=== PATIENT | male | born 1955 | race Caucasian/White ===

== ENCOUNTER 2017-01-02 19:07 | Inpatient (IN) | payer MEDICARE, OTHER ==
[~2017-01-02] VITALS: Ht 193 cm; Wt 81.6 kg
[2017-01-02 20:04] LABS: BASOPHILS % (AUTO) 0.9 % (0.0-2.0); EOSINOPHILS # (AUTO) 0.1 /CMM (0.0-0.7); EOSINOPHILS % (AUTO) 1.7 % (0.0-6.0); HEMATOCRIT 40 % (39-51); HEMOGLOBIN 13.5 g/dL (13.5-17.5); LYMPHOCYTES # (AUTO) 1.5 /CMM (0.8-4.8); LYMPHOCYTES % (AUTO) 31.6 % (20.0-44.0); MEAN CORPUSCULAR HEMOGLOBIN 31 PG (26.0-33.0); MEAN CORPUSCULAR HGB CONC 34 g/dl (31.0-36.0); MEAN CORPUSCULAR VOLUME 92 fL (80-96); MONOCYTES # (AUTO) 0.4 /CMM (0.1-1.30); MONOCYTES % (AUTO) 8.6 % (2.0-12.0); NEUTROPHILS # (AUTO) 2.8 /CMM (1.8-8.9); NEUTROPHILS % (AUTO) 57.2 % (43.0-81.0); PLATELET COUNT (AUTO) 148 /CMM (150-450); RDW COEFFICIENT OF VARIATION 12.2 (11.5-15.0); RED BLOOD CELL COUNT(AUTO) 4.33 MIL/uL (4.5-6.0); WHITE BLOOD COUNT (AUTO) 4.8 K/uL (4.3-11.0)
[2017-01-02] MEDS ORDERED: ALPRAZOLAM 0.5 MG TABLET ONE (20:14)
[2017-01-02 20:21] LABS: ALANINE AMINOTRANSFERASE 20 U/L (12-78); ALBUMIN 3.9 g/dL (3.4-5.0); ALCOHOL, BLOOD < 3 mg/dL (0-0); ALKALINE PHOSPHATASE 58 U/L (46-116); ASPARTATE AMINOTRANSFERASE 38 U/L (15-37); BILIRUBIN,DIRECT 0.1 mg/dL (0.0-0.2); BILIRUBIN,TOTAL 0.7 mg/dL (0.2-1.0); CALCIUM, SERUM 8.6 mg/dL (8.5-10.1); CARBON DIOXIDE 32 mmol/L (21-32); CHLORIDE 107 mmol/L (98-107); CREATININE 1.1 mg/dL (0.6-1.3); GLUCOSE 87 mg/dL (74-106); POTASSIUM 4.7 mmol/L (3.5-5.1); SODIUM SERUM 142 mmol/L (136-145); TOTAL PROTEIN, SERUM 7.1 g/dL (6.4-8.2); UREA NITROGEN, BLOOD 15 mg/dL (7-18)
[2017-01-02 20:28] LABS: ACETAMINOPHEN 0 ug/ml (10-30); SALICYLATE 0.2 mg/dL (2.8-20.0)
[2017-01-02] MEDS ORDERED: ACETAMINOPHEN 325 MG TABLET PO PRN (22:00)
[2017-01-02] MEDS ORDERED: MAGNESIUM HYDROXIDE 30 ML UDC PO PRN (22:00)
[2017-01-02] MEDS ORDERED: MAG HYDROX/AL HYDROX/SIMETH 30 ML UDC PO PRN (22:00)
[2017-01-02] MEDS ORDERED: LORAZEPAM 0.5 MG TABLET ONE (22:37)
[2017-01-02] MEDS: LORAZEPAM 0.5 MG TABLET PO PRN (22:51)
[2017-01-02 23:00] VITALS: BP 106/70
[2017-01-02] MEDS ORDERED: SIMV20TA6 PO (23:08)
[2017-01-02] MEDS ORDERED: CARB15DR12 (23:08)
[2017-01-02] MEDS ORDERED: CEPH500C2 PO (23:08)
[2017-01-02] MEDS ORDERED: SIMV10TA6 PO (23:08)
[2017-01-02] MEDS ORDERED: MEMA28CA PO (23:08)
[2017-01-02] MEDS ORDERED: TRAZ-144 PO (23:08)
[2017-01-02] MEDS ORDERED: DONE10TA44 PO (23:08)
[2017-01-02] MEDS ORDERED: TRAZ-147 PO (23:08)
[2017-01-02] MEDS ORDERED: CITA20TA11 PO (23:08)
[2017-01-02] MEDS ORDERED: ALPR0.5T8 PO (23:08)
[2017-01-02] MEDS ORDERED: DIVA125T3 PO (23:08)
[2017-01-02] MEDS: DONEPEZIL 5 MG TABLET PO SCH (23:30)
[2017-01-03 04:58] VITALS: BP 103/66
[2017-01-03 08:16] VITALS: BP 133/73
[2017-01-03] MEDS ORDERED: CARBAMIDE PEROXIDE OTIC 15 ML BOTTLE EACH EAR SCH (09:00)
[2017-01-03] MEDS: MEMANTINE HCL 5 MG TABLET PO SCH (09:06)
[2017-01-03] MEDS: CEPHALEXIN MONOHYDRATE 500 MG CAPSULE PO SCH ×2 (09:19→16:03)
[2017-01-03] MEDS: DIVALPROEX SODIUM 125 MG TABLET.DR PO SCH ×3 (11:59→16:03)
[2017-01-03] MEDS: LORAZEPAM 0.5 MG TABLET PO PRN ×2 (15:58→21:57)
[2017-01-03 16:00] VITALS: BP 120/77
[2017-01-03] MEDS: QUETIAPINE FUMARATE 25 MG TABLET PO SCH ×2 (16:03→21:56)
[2017-01-03 20:18] LABS: APPEARANCE,URINE CLEAR (CLEAR); BILIRUBIN,URINE NEGATIVE (NEGATIVE); BLOOD, URINE NEGATIVE Ery/uL (NEGATIVE); COLOR,URINE YELLOW (YELLOW); KETONES,URINE TRACE (NEGATIVE); LEUKOCYTE ESTERASE ,URINE NEGATIVE (NEGATIVE); NITRITE, URINE NEGATIVE (NEGATIVE); PROTEIN,URINE NEGATIVE (NEGATIVE); UGLUCOSE NEGATIVE (NEGATIVE); UROBILINOGEN,URINE 0.2 EU/dL (0.2)
[2017-01-03 20:27] LABS: BACTERIA,URINE None seen /HPF (None Seen); RBC,URINE NONE SEEN /HPF (0-2); SQUAMOUS EPITHELIAL CELL,UR Few /HPF (None Seen); WBC,URINE 0-2 /HPF (0-3)
[2017-01-03 20:42] VITALS: BP 118/72
[2017-01-03] MEDS: DONEPEZIL 5 MG TABLET PO SCH (21:56)
[2017-01-03] MEDS ORDERED: SIMVASTATIN 10 MG TABLET PO SCH (22:00)
[2017-01-03] MEDS ORDERED: SIMVASTATIN 20 MG TABLET PO SCH (22:00)
[2017-01-03] MEDS ORDERED: TRAZODONE 50 MG TABLET PO SCH (22:00)
[2017-01-04 08:00] VITALS: BP 126/65
[2017-01-04] MEDS: CEPHALEXIN MONOHYDRATE 500 MG CAPSULE PO SCH ×2 (08:53→16:39)
[2017-01-04] MEDS: DIVALPROEX SODIUM 125 MG TABLET.DR PO SCH ×2 (08:53→22:54)
[2017-01-04] MEDS: QUETIAPINE FUMARATE 25 MG TABLET PO SCH ×3 (08:54→22:54)
[2017-01-04] MEDS: MEMANTINE HCL 5 MG TABLET PO SCH (08:54)
[2017-01-04 12:23] LABS: MAGNESIUM 1.9 mg/dL (1.8-2.4)
[2017-01-04 12:46] LABS: THYROID STIMULATING HORMONE 1.165 uIU/mL (0.358-3.74)
[2017-01-04 16:00] VITALS: BP 155/74
[2017-01-04 19:55] VITALS: BP 108/57
[2017-01-05 07:51] VITALS: BP 104/59
[2017-01-05] MEDS: QUETIAPINE FUMARATE 25 MG TABLET PO SCH ×3 (08:33→21:51)
[2017-01-05] MEDS: CEPHALEXIN MONOHYDRATE 500 MG CAPSULE PO SCH ×2 (08:33→17:08)
[2017-01-05] MEDS: CYANOCOBALAMIN 1,000 MCG/ML VIAL IM SCH (09:51)
[2017-01-05] MEDS: LORAZEPAM 0.5 MG TABLET PO PRN (15:59)
[2017-01-05 16:00] VITALS: BP 104/63
[2017-01-05] MEDS ORDERED: Z GUARD REMEDY 4 OZ OINT TP PRN (18:00)
[2017-01-05 20:00] VITALS: BP 105/65
[2017-01-05] MEDS: Z GUARD REMEDY 4 OZ OINT TP SCH (21:18)
[2017-01-05] MEDS: DIVALPROEX SODIUM 125 MG TABLET.DR PO SCH (21:51)
[2017-01-05] MEDS: ZOLPIDEM TARTRATE 5 MG TABLET PO PRN (23:14)
[2017-01-06 08:00] VITALS: BP 113/70
[2017-01-06] MEDS: CEPHALEXIN MONOHYDRATE 500 MG CAPSULE PO SCH ×2 (08:23→16:26)
[2017-01-06] MEDS: QUETIAPINE FUMARATE 25 MG TABLET PO SCH ×3 (08:24→21:41)
[2017-01-06] MEDS: Z GUARD REMEDY 4 OZ OINT TP SCH ×2 (08:58→21:57)
[2017-01-06] MEDS: CYANOCOBALAMIN 1,000 MCG/ML VIAL IM SCH (08:59)
[2017-01-06 15:52] LABS: ALBUMIN 3.9 g/dL (3.4-5.0); BILIRUBIN,TOTAL 1.2 mg/dL (0.2-1.0); CREATININE 0.9 mg/dL (0.6-1.3); POTASSIUM 4.5 mmol/L (3.5-5.1); TOTAL PROTEIN, SERUM 7.4 g/dL (6.4-8.2)
[2017-01-06 16:00] VITALS: BP 106/79
[2017-01-06 17:19] LABS: BASOPHILS % (AUTO) 0.4 % (0.0-2.0); EOSINOPHILS # (AUTO) 0.1 /CMM (0.0-0.7); EOSINOPHILS % (AUTO) 1.8 % (0.0-6.0); HEMATOCRIT 45 % (39-51); HEMOGLOBIN 14.8 g/dL (13.5-17.5); MEAN CORPUSCULAR HEMOGLOBIN 31 PG (26.0-33.0); MEAN CORPUSCULAR HGB CONC 33 g/dl (31.0-36.0); MEAN CORPUSCULAR VOLUME 93 fL (80-96); MONOCYTES # (AUTO) 0.5 /CMM (0.1-1.30); MONOCYTES % (AUTO) 8.8 % (2.0-12.0); NEUTROPHILS # (AUTO) 4.3 /CMM (1.8-8.9); PLATELET COUNT (AUTO) 168 /CMM (150-450); RDW COEFFICIENT OF VARIATION 12.8 (11.5-15.0); RED BLOOD CELL COUNT(AUTO) 4.81 MIL/uL (4.5-6.0); WHITE BLOOD COUNT (AUTO) 5.9 K/uL (4.3-11.0)
[2017-01-06 20:00] VITALS: BP 112/90
[2017-01-06] MEDS: ZOLPIDEM TARTRATE 5 MG TABLET PO PRN (21:48)
[2017-01-06] MEDS ORDERED: DIVALPROEX SODIUM 125 MG CAP.SPRINK PO SCH (22:00)
[2017-01-06] MEDS: LORAZEPAM 0.5 MG TABLET PO PRN (22:02)
[2017-01-07 08:20] VITALS: BP 94/55
[2017-01-07] MEDS: CEPHALEXIN MONOHYDRATE 500 MG CAPSULE PO SCH ×2 (08:49→16:31)
[2017-01-07] MEDS: CYANOCOBALAMIN 1,000 MCG/ML VIAL IM SCH (08:49)
[2017-01-07] MEDS: QUETIAPINE FUMARATE 25 MG TABLET PO SCH ×2 (08:49→21:10)
[2017-01-07] MEDS: LORAZEPAM 0.5 MG TABLET PO PRN ×2 (08:52→12:41)
[2017-01-07] MEDS: Z GUARD REMEDY 4 OZ OINT TP SCH ×2 (09:00→20:37)
[2017-01-07 15:59] VITALS: BP 105/60
[2017-01-07] MEDS ORDERED: QUETIAPINE FUMARATE 25 MG TABLET PO SCH (17:00)
[2017-01-07 20:01] VITALS: BP 119/67
[2017-01-07] MEDS: DIVALPROEX SODIUM 125 MG CAP.SPRINK PO SCH (21:10)
[2017-01-07] MEDS: ZOLPIDEM TARTRATE 5 MG TABLET PO PRN (22:03)
[2017-01-08] MEDS: LORAZEPAM 0.5 MG TABLET PO PRN ×2 (01:32→09:12)
[2017-01-08 08:00] VITALS: BP 102/60
[2017-01-08] MEDS: QUETIAPINE FUMARATE 25 MG TABLET PO SCH ×4 (09:11→21:15)
[2017-01-08] MEDS: Z GUARD REMEDY 4 OZ OINT TP SCH ×2 (09:12→21:37)
[2017-01-08] MEDS: DIVALPROEX SODIUM 125 MG CAP.SPRINK PO SCH ×3 (09:12→21:15)
[2017-01-08] MEDS: CYANOCOBALAMIN 1,000 MCG/ML VIAL IM SCH (09:12)
[2017-01-08 20:23] VITALS: BP 105/55
[2017-01-09 08:00] VITALS: BP 106/87
[2017-01-09] MEDS: CYANOCOBALAMIN 1,000 MCG/ML VIAL IM SCH (08:16)
[2017-01-09] MEDS: DIVALPROEX SODIUM 125 MG CAP.SPRINK PO SCH ×2 (08:16→11:59)
[2017-01-09] MEDS: QUETIAPINE FUMARATE 25 MG TABLET PO SCH ×5 (08:16→21:51)
[2017-01-09] MEDS: Z GUARD REMEDY 4 OZ OINT TP SCH ×2 (10:50→21:28)
[2017-01-09] MEDS ORDERED: DIVALPROEX SODIUM 125 MG CAP.SPRINK PO SCH (13:00)
[2017-01-09] MEDS ORDERED: DIVALPROEX SODIUM 250 MG TABLET.DR PO SCH ×2 (13:34→22:00)
[2017-01-09 16:28] VITALS: BP 100/60
[2017-01-09 16:29] VITALS: BP 138/70
[2017-01-09 20:00] VITALS: BP 93/66
[2017-01-09] MEDS: ZOLPIDEM TARTRATE 5 MG TABLET PO PRN (22:52)
[2017-01-10] MEDS: QUETIAPINE FUMARATE 25 MG TABLET PO SCH ×4 (07:57→22:06)
[2017-01-10] MEDS: DIVALPROEX SODIUM 125 MG CAP.SPRINK PO SCH ×2 (07:57→12:07)
[2017-01-10 08:28] VITALS: BP 109/55
[2017-01-10] MEDS: CYANOCOBALAMIN 1,000 MCG/ML VIAL IM SCH (08:53)
[2017-01-10] MEDS: Z GUARD REMEDY 4 OZ OINT TP SCH ×2 (09:49→22:04)
[2017-01-10 16:00] VITALS: BP 96/74
[2017-01-10 20:18] VITALS: BP 109/64
[2017-01-10] MEDS: DIVALPROEX SODIUM 250 MG TABLET.DR PO SCH (22:06)
[2017-01-11 08:00] VITALS: BP 116/64
[2017-01-11] MEDS: QUETIAPINE FUMARATE 25 MG TABLET PO SCH ×5 (09:10→22:00)
[2017-01-11] MEDS: DIVALPROEX SODIUM 125 MG CAP.SPRINK PO SCH ×2 (09:10→14:05)
[2017-01-11] MEDS: CYANOCOBALAMIN 1,000 MCG/ML VIAL IM SCH (09:10)
[2017-01-11] MEDS: Z GUARD REMEDY 4 OZ OINT TP SCH ×2 (09:12→21:00)
[2017-01-11] MEDS: LORAZEPAM 0.5 MG TABLET PO PRN (11:17)
[2017-01-11 16:00] VITALS: BP 114/65
[2017-01-11] MEDS: DIVALPROEX SODIUM 250 MG TABLET.DR PO SCH ×2 (21:53→22:00)
[2017-01-11 22:33] VITALS: BP 102/64
[2017-01-12 08:36] VITALS: BP 101/60
[2017-01-12] MEDS: QUETIAPINE FUMARATE 25 MG TABLET PO SCH ×6 (09:39→22:00)
[2017-01-12] MEDS: CYANOCOBALAMIN 1,000 MCG/ML VIAL IM SCH (09:39)
[2017-01-12] MEDS: Z GUARD REMEDY 4 OZ OINT TP SCH ×2 (09:43→21:02)
[2017-01-12 09:50] LABS: BASOPHILS % (AUTO) 0.3 % (0.0-2.0); EOSINOPHILS # (AUTO) 0.1 /CMM (0.0-0.7); EOSINOPHILS % (AUTO) 2.1 % (0.0-6.0); HEMATOCRIT 42 % (39-51); HEMOGLOBIN 14.3 g/dL (13.5-17.5); LYMPHOCYTES # (AUTO) 0.9 /CMM (0.8-4.8); LYMPHOCYTES % (AUTO) 19.7 % (20.0-44.0); MEAN CORPUSCULAR HEMOGLOBIN 31 PG (26.0-33.0); MEAN CORPUSCULAR HGB CONC 34 g/dl (31.0-36.0); MEAN CORPUSCULAR VOLUME 92 fL (80-96); MONOCYTES # (AUTO) 0.3 /CMM (0.1-1.30); MONOCYTES % (AUTO) 5.8 % (2.0-12.0); NEUTROPHILS # (AUTO) 3.2 /CMM (1.8-8.9); NEUTROPHILS % (AUTO) 72.1 % (43.0-81.0); PLATELET COUNT (AUTO) 152 /CMM (150-450); RDW COEFFICIENT OF VARIATION 13.2 (11.5-15.0); RED BLOOD CELL COUNT(AUTO) 4.58 MIL/uL (4.5-6.0); WHITE BLOOD COUNT (AUTO) 4.5 K/uL (4.3-11.0)
[2017-01-12 10:09] LABS: ALBUMIN 3.9 g/dL (3.4-5.0); CALCIUM, SERUM 8.8 mg/dL (8.5-10.1); CREATININE 0.9 mg/dL (0.6-1.3); POTASSIUM 4.2 mmol/L (3.5-5.1); TOTAL PROTEIN, SERUM 7.5 g/dL (6.4-8.2)
[2017-01-12] MEDS: LORAZEPAM 0.5 MG TABLET PO PRN (10:27)
[2017-01-12] MEDS: DIVALPROEX SODIUM 125 MG CAP.SPRINK PO SCH ×2 (10:28→13:00)
[2017-01-12 16:40] VITALS: BP 106/66
[2017-01-12 20:00] VITALS: BP 101/67
[2017-01-12] MEDS: DIVALPROEX SODIUM 250 MG TABLET.DR PO SCH (21:39)
[2017-01-12] MEDS: TEMAZEPAM 7.5 MG CAPSULE PO PRN ×2 (21:40→21:46)
[2017-01-13 08:00] VITALS: BP 111/74
[2017-01-13] MEDS: QUETIAPINE FUMARATE 25 MG TABLET PO SCH ×4 (08:37→21:29)
[2017-01-13] MEDS: DIVALPROEX SODIUM 125 MG CAP.SPRINK PO SCH ×2 (08:37→13:12)
[2017-01-13] MEDS: CYANOCOBALAMIN 1,000 MCG/ML VIAL IM SCH (08:37)
[2017-01-13] MEDS: Z GUARD REMEDY 4 OZ OINT TP SCH ×2 (08:38→21:28)
[2017-01-13 16:02] VITALS: BP 105/65
[2017-01-13 20:00] VITALS: BP 99/72
[2017-01-13] MEDS: DIVALPROEX SODIUM 250 MG TABLET.DR PO SCH (21:29)
[2017-01-14 08:32] VITALS: BP 121/74
[2017-01-14] MEDS: CYANOCOBALAMIN 1,000 MCG/ML VIAL IM SCH ×2 (09:00→10:23)
[2017-01-14] MEDS: Z GUARD REMEDY 4 OZ OINT TP SCH ×2 (10:23→21:34)
[2017-01-14] MEDS: QUETIAPINE FUMARATE 25 MG TABLET PO SCH ×4 (10:23→22:30)
[2017-01-14] MEDS: DIVALPROEX SODIUM 125 MG CAP.SPRINK PO SCH ×2 (10:23→12:19)
[2017-01-14 15:48] VITALS: BP 100/50
[2017-01-14 20:00] VITALS: BP 102/56
[2017-01-14 22:20] VITALS: BP 117/65
[2017-01-14] MEDS: DIVALPROEX SODIUM 250 MG TABLET.DR PO SCH (22:24)
[2017-01-15 08:00] VITALS: BP 130/60
[2017-01-15] MEDS: CYANOCOBALAMIN 1,000 MCG/ML VIAL IM SCH (09:00)
[2017-01-15] MEDS: QUETIAPINE FUMARATE 25 MG TABLET PO SCH ×3 (09:17→17:30)
[2017-01-15] MEDS: DIVALPROEX SODIUM 125 MG CAP.SPRINK PO SCH ×2 (09:17→13:17)
[2017-01-15] MEDS: Z GUARD REMEDY 4 OZ OINT TP SCH ×2 (11:24→22:06)
[2017-01-15 16:00] VITALS: BP 108/66
[2017-01-15 20:34] VITALS: BP 108/51
[2017-01-15] MEDS: QUETIAPINE FUMARATE 100 MG TABLET PO SCH (22:07)
[2017-01-15] MEDS: DIVALPROEX SODIUM 250 MG TABLET.DR PO SCH (22:07)
[2017-01-16 08:00] VITALS: BP 100/60
[2017-01-16] MEDS: DIVALPROEX SODIUM 125 MG CAP.SPRINK PO SCH ×2 (08:17→12:15)
[2017-01-16] MEDS: QUETIAPINE FUMARATE 25 MG TABLET PO SCH ×3 (08:17→16:24)
[2017-01-16] MEDS: CYANOCOBALAMIN 1,000 MCG/ML VIAL IM SCH (08:42)
[2017-01-16] MEDS: Z GUARD REMEDY 4 OZ OINT TP SCH ×2 (08:44→21:30)
[2017-01-16 16:00] VITALS: BP 110/56
[2017-01-16 21:00] VITALS: BP 114/75
[2017-01-16] MEDS: DIVALPROEX SODIUM 250 MG TABLET.DR PO SCH (21:28)
[2017-01-16] MEDS: QUETIAPINE FUMARATE 100 MG TABLET PO SCH (21:29)
[2017-01-17 08:00] VITALS: BP 132/66
[2017-01-17] MEDS: CYANOCOBALAMIN 1,000 MCG/ML VIAL IM SCH (08:28)
[2017-01-17] MEDS: DIVALPROEX SODIUM 125 MG CAP.SPRINK PO SCH ×2 (08:28→12:01)
[2017-01-17] MEDS: Z GUARD REMEDY 4 OZ OINT TP SCH ×2 (08:29→21:26)
[2017-01-17] MEDS: QUETIAPINE FUMARATE 25 MG TABLET PO SCH ×3 (08:29→16:19)
[2017-01-17 16:00] VITALS: BP 100/62
[2017-01-17 20:00] VITALS: BP 100/50
[2017-01-17] MEDS: QUETIAPINE FUMARATE 100 MG TABLET PO SCH (21:28)
[2017-01-17] MEDS ORDERED: DIVALPROEX SODIUM 125 MG CAP.SPRINK PO SCH (22:00)
[2017-01-18 08:00] VITALS: BP 126/76
[2017-01-18] MEDS: DIVALPROEX SODIUM 125 MG CAP.SPRINK PO SCH (08:04)
[2017-01-18] MEDS: LORAZEPAM 0.5 MG TABLET PO PRN (08:04)
[2017-01-18] MEDS: Z GUARD REMEDY 4 OZ OINT TP SCH (08:04)
[2017-01-18] MEDS: CYANOCOBALAMIN 1,000 MCG/ML VIAL IM SCH (08:04)
[2017-01-18] MEDS: QUETIAPINE FUMARATE 25 MG TABLET PO SCH (08:04)
== END 2017-01-18 11:15 | DRG 885 ==
LOC: ER 19:10 → GPS 21:11
PROVIDERS: ADMIT Psychiatry & Neurology Psychiatry
DX: F29 Unspecified psychosis not due to a substance or known physiological condition (principal); F02.81 Dementia in other diseases classified elsewhere, unspecified severity, with behavioral disturbance; G93.40 Encephalopathy, unspecified; G30.9 Alzheimer's disease, unspecified; I73.00 Raynaud's syndrome without gangrene; I10 Essential (primary) hypertension; F41.9 Anxiety disorder, unspecified; E53.8 Deficiency of other specified B group vitamins; R47.02 Dysphasia
CPT/HCPCS: 36415; 70450-TC; 80048-TC; 80053-TC; 80076-TC; 80164-TC; 81000-TC; 83735-TC; 84100-TC; 84425; 84443-TC; 85025-TC; 87086-TC; 97001-TC; 97530-TC; A4349; A4606; G0480; G6039-TC; J3420; Z7610